=== PATIENT | male | born 1950 | race Two or more races ===

== ENCOUNTER → 2021-05-24 | Emergency (ER) | payer BC, MEDICARE | END | disposition home or self-care (01) | LOC: ER 21:39 | DX: Z20.822 Contact with and (suspected) exposure to COVID-19 (principal) | CPT/HCPCS: U0002 ==

== ENCOUNTER → 2021-08-15 | Outpatient (CLI) | payer MEDICARE, OTHER | LOC: CT 12:05 | PROVIDERS: ATTEND Internal Medicine | DX: R10.9 Unspecified abdominal pain (principal); K76.0 Fatty (change of) liver, not elsewhere classified; R16.1 Splenomegaly, not elsewhere classified | CPT/HCPCS: 74177 ==

== ENCOUNTER → 2021-08-29 | Outpatient (CLI) | payer MEDICARE, OTHER | LOC: MRI 12:28 | DX: M54.50 Low back pain, unspecified (principal) | CPT/HCPCS: 72148 ==